=== PATIENT | male | born 1960 | race Caucasian/White ===

== ENCOUNTER 2025-03-12 14:30 | Emergency (ER) | payer MEDICARE, BC ==
[2025-03-12 15:30] LABS: APPEARANCE,URINE CLOUDY (CLEAR); GLUCOSE,URINE NEGATIVE (NEGATIVE); OCCULT BLOOD,URINE LARGE (NEGATIVE)
[2025-03-12] MEDS: Ketorolac 30 MG/ML SDV IM ONE (15:32)
[2025-03-12 15:36] LABS: EPITHELIAL CELLS,URINE RARE
== END 2025-03-12 18:10 | disposition home or self-care (01) ==
LOC: JP.ED 14:30
DX: N13.2 Hydronephrosis with renal and ureteral calculous obstruction (principal)
CPT/HCPCS: 74176; 81001; 96372; 99283; 99284; J1885